=== PATIENT | male | born 1955 | race Caucasian/White ===

== ENCOUNTER 2016-06-13 15:45 | Inpatient (IN) | payer MEDICARE ==
[~2016-06-13] VITALS: Ht 170.2 cm; Wt 123.8 kg
[2016-06-13] VITALS (11 sets, daily range): BP systolic 87–121; BP diastolic 51–74; PULSE 75–85; RESP 12–38; TEMP 98.6; O2SAT 95–100
[~2016-06-13 15:45] MED LIST: ASPI81CH3 PO; ATOR20TA PO; CARV6.25 PO; CLOP75TA PO; CYCL-36 PO; FURO20TA PO; ISOS60 PO; LISI-360 PO; LOSA25 PO; NITR.3 SL; PACE200T4 PO; PARO10TA PO; PERC10TA27 PO; POTA10IN2 PO; RANO500 PO; ROPI1TAB72 PO; WARF2TAB PO; [UNRECOGNIZED DRUG - CODE] PO
[2016-06-13] MEDS ORDERED: methylPREDNISolone SOD SUCC 125 MG/2 ML VIAL IVP ONE (16:00)
[2016-06-13] MEDS ORDERED: SODIUM CHLORIDE 0.9% FLUSH 5 ML FLUSH IVF PRN (16:00)
[2016-06-13] MEDS ORDERED: SODIUM CHLORID 0.9% 500 ML INJ 500 ML IV ONE (16:00)
[2016-06-13] MEDS: RESP: ALBUTEROL 2.5 MG/IPRATROPIUM 0.5 MG NEB (SCH) INH (16:15)
[2016-06-13 16:20] LABS: BLOOD GAS BASE EXCESS 1.6 mmol/L (-2-2); BLOOD GAS CARBOXYHEMOGLOBIN 5.4 % (0-4); BLOOD GAS HCO3 27 mmol/L (22-26); BLOOD GAS METHEMOGLOBIN 1.9 % (0-2); BLOOD GAS O2 HGB SATURATION 90 % (90-100); BLOOD GAS PCO2 51 mmHg (38-42); BLOOD GAS PO2 88 mmHG (61-120); BLOOD GAS TOTAL HGB 13.4 G/DL (12.0-16.0); CRITICAL VALUE YES; DRAW SITE LT RADIAL; LITER FLOW 3 L/M; NUMBER OF ARTERIAL PUNCTURES 1; OXYGEN DEVICE NASAL CANNULA; STAT YES; TEMP CORR TO 98.6
[2016-06-13 16:22] LABS: AUTOMATED NEUTROPHIL # 6.6 TH/MM3 (1.8-7.7); BASOPHIL % 0.4 % (0.0-2.0); EOSINOPHIL # 0.1 TH/MM3 (0-0.4); EOSINOPHIL % 1.2 % (0.0-4.0); HEMATOCRIT 40.2 % (39.0-51.0); HEMO FLAGS DIFF FINAL; LYMPH % 19.2 % (9.0-44.0); LYMPHOCYTE # 1.8 TH/MM3 (1.0-4.8); MEAN CORPUSCULAR HEMOGLOBIN 29.8 PG (27.0-34.0); MEAN CORPUSCULAR HGB CONC 34.3 % (32.0-36.0); MONO % 7.3 % (0.0-8.0); NEUT % 71.9 % (16.0-70.0); PLATELET COUNT 125 TH/MM3 (150-450); RED BLOOD COUNT 4.63 MIL/MM3 (4.50-5.90); RED CELL DISTRIBUTION WIDTH 14.2 % (11.6-17.2); WHITE BLOOD COUNT 9.2 TH/MM3 (4.0-11.0)
[2016-06-13 16:40] LABS: ANION GAP 5 MEQ/L (5-15); BICARBONATE 32.1 MEQ/L (21.0-32.0); BLOOD UREA NITROGEN 15 MG/DL (7-18); CHLORIDE 98 MEQ/L (98-107); GLOMERULAR FILTRATION RATE 46 ML/MIN (>89); MAGNESIUM 1.7 MG/DL (1.5-2.5); POTASSIUM 4.3 MEQ/L (3.5-5.1); SODIUM (NA) 135 MEQ/L (136-145)
[2016-06-13 16:44] LABS: CREATINE KINASE 173 U/L (39-308)
[2016-06-13 16:46] LABS: PROTHROMBIN TIME - PATIENT 11.1 SEC (9.8-11.6)
[2016-06-13 16:56] LABS: CKMB 3.9 NG/ML (0.5-3.6)
--- NOTE | 2016-06-13 16:59 | RADRPT ---
EXAM DATE/TIME: 06/13/2016 16:02 [place] COMPARISON: CHEST SINGLE AP, June 28, 2015, 15:40. INDICATIONS : Short of breath, syncope MEDICAL HISTORY : Hypertension. Myocardial infarction. Congestive heart failure. emphysema SURGICAL HISTORY : CABG. Coronary artery stent. ENCOUNTER: Initial ACUITY: 1 day PAIN SCORE: 0/10 LOCATION: Bilateral chest FINDINGS: The cardiac silhouette is enlarged in transverse diameter. The lungs are free of acute parenchymal op acity. No effusions are identified. Median sternotomy wires are present. CONCLUSION: 1. Cardiomegaly. No acute pulmonary disease. Salvador Brower MD on June 13, 2016 at 16:54 Board Certified Radiologist. This report was verified electronically.
[2016-06-13] MEDS ORDERED: ROPI1TAB72 PO (17:03)
[2016-06-13] MEDS ORDERED: CYCL1TAB29 PO (17:03)
[2016-06-13] MEDS ORDERED: RANO500 PO (17:03)
[2016-06-13] MEDS ORDERED: ATOR20TA15 PO (17:03)
[2016-06-13] MEDS ORDERED: ASPI81CH7 CHEW (17:03)
[2016-06-13] MEDS ORDERED: WARF4TAB51 PO (17:03)
[2016-06-13] MEDS ORDERED: AMIO200T PO (17:08)
[2016-06-13] MEDS: RESP: ALBUTEROL 2.5 MG/3 ML NEB (SCH) INH (17:15)
[2016-06-13] MEDS ORDERED: DIPH1TAB36 PO (17:16)
[2016-06-13] MEDS ORDERED: LOSA25TA PO (17:16)
[2016-06-13] MEDS ORDERED: K-TA10TA PO (17:16)
[2016-06-13] MEDS ORDERED: PAXI10TA2 PO (17:16)
[2016-06-13] MEDS ORDERED: NITR1SUB2 SL (17:16)
[2016-06-13] MEDS ORDERED: CARV6.252 PO (17:16)
[2016-06-13] MEDS ORDERED: FURO20TA PO (17:16)
[2016-06-13] MEDS ORDERED: PLAV75TA29 PO (17:16)
[2016-06-13] MEDS ORDERED: LISI-515 PO (17:16)
[2016-06-13] MEDS ORDERED: ISOS60TA PO (17:16)
[2016-06-13] MEDS ORDERED: ALBUAER3 INH (17:17)
[2016-06-13] MEDS ORDERED: BISACODYL 10 MG SUPP PR PRN (17:45)
[2016-06-13] MEDS ORDERED: SENNOSIDES 8.6 MG TAB PO PRN (17:45)
[2016-06-13] MEDS ORDERED: NALOXONE HCL 0.4 MG/ML AMP IV PRN (17:45)
[2016-06-13] MEDS ORDERED: ONDANSETRON HCL 4 MG/2 ML VIAL IVP PRN (17:45)
[2016-06-13] MEDS ORDERED: SODIUM CHLORIDE 0.9% FLUSH 5 ML FLUSH FLUSH PRN (17:45)
[2016-06-13] MEDS ORDERED: ACETAMINOPHEN 325 MG TAB PO PRN (17:45)
--- NOTE | 2016-06-13 17:45 | PD ---
HPI Chief Complaint: Cardiac Complaint Time Seen by Provider: 15:57 Travel History International Travel<30 days: No Contact w/Intl Traveler<30days: No Traveled to known affect area: No History of Present Illness HPI 61-year-old male came to the emergency room brought by EMS with history of chest pain that's progressively worsening over past 2 days. Patient has history of coronary artery disease along with CABG in the past. He says for past 2 days the pain has been substernal and it was getting worse. He described the pain to be squeezing kind of chest pain. He was taking sublingual nitroglycerin at home which did not relieve the pain. Today he was short of breath as well and decided to call 911. When EMS arrived patient looked to be in distress and they gave 2 more nitroglycerin used along with bronchodilators and brought him in. From what I understand patient received a total of 5 nitroglycerin today and when he arrived his blood pressure was 82 systolic. He said his chest pain was 2 out of 10. Patient is a smoker. He is noncompliant with his other medications. [facility] Past Medical History Narrative Medical List of his past medical history as reviewed from the nursing note. Hx Anticoagulant Therapy: Yes Arthritis: Yes Atrial Fibrillation: Yes Bipolar Disorder: Yes Anxiety: Yes Depression: No Heart Rhythm Problems: Yes Cardiac Catheterization: Yes Cardiovascular Problems: Yes High Cholesterol: Yes Chest Pain: Yes Congestive Heart Failure: Yes COPD: Yes Cerebrovascular Accident: Yes ( ) Coronary Artery Disease: Yes Diabetes: No Diminished Hearing: No Endocrine: No Gastrointestinal Disorders: Yes Genitourinary: Yes Hypertension: Yes Musculoskeletal: Yes Neurologic: Yes Psychiatric: Yes Respiratory: Yes Sleep Apnea: Yes Tetanus Vaccination: < 5 Years Influenza Vaccination: Yes Past Surgical History Abdominal Surgery: Yes (gall bladder, appendix) Appendectomy: Yes Body Medical Devices: pin in right knee Cardiac Surgery: Yes (cabg ) Cholecystectomy: Yes Coronary Artery Bypass Graft: Yes Coronary Stent: Yes Other Surgery: Yes (GALBLADDER REMOVAL 1978) Social History Alcohol Use: Yes (WHISK ) Tobacco Use: Yes (05/11 PPD ) Substance Use: No Allergies-Medications (Allergen,Severity, Reaction): Coded Allergies: Codeine (Verified Allergy, Severe, 06/13/16) Rocephin (Verified Allergy, Severe, Chest Pain, 06/13/16) Pt states he had an NM when given Rocephin Comments List of his allergies reviewed from the nursing note. Reported Meds & Prescriptions Reported Meds & Active Scripts Active Reported Oxycontin (Oxycodone HCl) 20 Mg Tab 20 Mg PO Q12HR Proair Hfa 8.5 GM Inh (Albuterol Sulfate) 90 Mcg/Act Aer 2 Puff INH Q4HR PRN 108 mcg/actuation K-Tab (Potassium Chloride) 10 Meq Tab 10 Meq PO DAILY Paxil (Paroxetine HCl) 10 Mg Tab 10 Mg PO DAILY Nitroglycerin SL (Nitroglycerin) 0.3 Mg Subl 0.3 Mg SL DIRECTED PRN ONE TABLET UNDER THE TONGUE NEEDED FOR CHEST PAIN, MAY REPEAT EVERY FIVE MINUTES FOR A TOTAL OF 3 DOSES OR CALL 911 IF NO RELIEF Losartan (Losartan Potassium) 25 Mg Tab 25 Mg PO DAILY Lisinopril 20 Mg Tab 20 Mg PO DAILY Isosorbide Mononitrate ER (Isosorbide Mononitrate) 60 Mg Tab 60 Mg PO DAILY Furosemide 20 Mg Tab 20 Mg PO DAILY Tylenol Pm Extra Strength (Diphenhydramine-Acetaminophen) 25-500 Mg Tab 2 Tab PO HS Plavix (Clopidogrel Bisulfate) 75 Mg Tab 75 Mg PO DAILY Carvedilol 6.25 Mg Tab 6.25 Mg PO BID Amiodarone (Amiodarone HCl) 200 Mg Tab 200 Mg PO DAILY Ranexa ER 12 HR (Ranolazine) 500 Mg Tab 500 Mg PO HS Requip (Ropinirole) 1 Mg Tab 1 Mg PO HS Warfarin 2 Mg Tab 2 Mg PO DAILY Flexeril (Cyclobenzaprine HCl) 10 Mg Tab 10 Mg PO HS PRN Atorvastatin (Atorvastatin Calcium) 20 Mg Tab 20 Mg PO HS Aspirin Children's (Aspirin) 81 Mg Chew 81 Mg CHEW DAILY Narrative Medication List of his home medications reviewed from the nursing note. Review of Systems Except as stated in HPI: all other systems reviewed are Neg Physical Exam Narrative GENERAL: Awake, alert, morbidly obese, moderate distress, disheveled SKIN: Warm and dry. HEAD: Atraumatic. Normocephalic. EYES: Pupils equal and round. No scleral icterus. No injection or drainage. ENT: No nasal bleeding or discharge. Mucous membranes pink and moist. NECK: Trachea midline. No JVD. CARDIOVASCULAR: Regular rate and rhythm. No murmur appreciated. RESPIRATORY: Decreased air entry bilaterally, end expiratory wheeze GASTROINTESTINAL: Abdomen soft, non-tender, nondistended. Hepatic and splenic margins not palpable. MUSCULOSKELETAL: No obvious deformities. No clubbing. No cyanosis. No edema. NEUROLOGICAL: Awake and alert. No obvious cranial nerve deficits. Motor grossly within normal limits. Normal speech. PSYCHIATRIC: Appropriate mood and affect; insight and judgment normal. Data Data Last Documented VS Vital Signs Date Time Temp Pulse Resp B/P Pulse Ox O2 Delivery O2 Flow Rate FiO2 06/13/16 16:44 75 22 121/55 97 BiPAP 40 06/13/16 16:08 2 06/13/16 15:57 98.6 Orders Electrocardiogram (06/13/16 ) Complete Blood Count With Diff (06/13/16 15:57) Basic Metabolic Panel (Bmp) (06/13/16 15:57) B-Type Natriuretic Peptide (06/13/16 15:57) Prothrombin Time / Inr (Pt) (06/13/16 15:57) Magnesium (Mg) (06/13/16 15:57) Ckmb (Isoenzyme) Profile (06/13/16 15:57) Troponin I (06/13/16 15:57) Arterial Blood Gas (Abg) (06/13/16 15:57) Urinalysis - C+S If Indicated (06/13/16 15:57) Iv Access Insert/Monitor (06/13/16 15:57) Ecg Monitoring (06/13/16 15:57) Oximetry (06/13/16 15:57) Oxygen Administration (06/13/16 15:57) Chest, Single Ap (06/13/16 15:57) Sodium Chloride 0.9% Flush (Ns Flush) (06/13/16 16:00) Methylprednisolone So Succ Inj (Solumedr (06/13/16 16:00) Albuterol-Ipratropium Neb (Duoneb Neb) (06/13/16 16:00) Sodium Chlorid 0.9% 500 Ml Inj (Ns 500 M (06/13/16 16:00) CKMB (06/13/16 16:15) CKMB% (06/13/16 16:15) Albuterol Neb (Albuterol Neb) (06/13/16 17:00) Arterial Blood Gas (Abg) (06/13/16 ) Resp Bipap / Cpap Non Invas Vt (06/13/16 ) Admit Order (Ed Use Only) (06/13/16 17:45) Admit To Inpatient (06/13/16 ) Vital Signs (Adult) Q4H (06/13/16 17:40) Activity Oob With Assistance (06/13/16 17:40) Tax Auditor / Telemetry .CONTINUOUS (06/13/16 17:40) Diet Heart Healthy (06/13/16 Dinner) Sodium Chloride 0.9% Flush (Ns Flush) (06/13/16 17:45) Sodium Chloride 0.9% Flush (Ns Flush) (06/13/16 21:00) Acetaminophen (Tylenol) (06/13/16 17:45) Ondansetron Inj (Zofran Inj) (06/13/16 17:45) Bisacodyl Supp (Dulcolax Supp) (06/13/16 17:45) Sennosides (Senokot) (06/13/16 17:45) Basic Metabolic Panel (Bmp) (06/14/16 06:00) Complete Blood Count With Diff (06/14/16 06:00) Troponin I (06/13/16 17:40) Troponin I (06/13/16 23:40) Resp Oxygen Alejandro C Titrat 1-4 L (06/13/16 ) Enoxaparin Inj (Lovenox Inj) (06/13/16 20:00) Naloxone Inj (Narcan Inj) (06/13/16 17:45) Inpatient Certification (06/13/16 ) Labs Laboratory Tests Test 06/13/16 06/13/16 16:10 16:15 Blood Gas Puncture Site LT RADIAL Blood Gas Patient Temperature 98.6 Blood Gas HCO3 27 mmol/L Blood Gas Base Excess 1.6 mmol/L Blood Gas Oxygen Saturation 90 % Arterial Blood pH 7.34 Arterial Blood Partial 51 mmHg Pressure CO2 Arterial Blood Partial 88 mmHG Pressure O2 Arterial Blood Oxygen Content 17.0 Vol % Arterial Blood 5.4 % Carboxyhemoglobin Arterial Blood Methemoglobin 1.9 % Blood Gas Hemoglobin 13.4 G/DL Oxygen Delivery Device NASAL CANNULA Blood Gas Liter Flow 3 L/M White Blood Count 9.2 TH/MM3 Red Blood Count 4.63 MIL/MM3 Hemoglobin 13.8 GM/DL Hematocrit 40.2 % Mean Corpuscular Volume 87.0 FL Mean Corpuscular Hemoglobin 29.8 PG Mean Corpuscular Hemoglobin 34.3 % Concent Red Cell Distribution Width 14.2 % Platelet Count 125 TH/MM3 Mean Platelet Volume 11.3 FL Neutrophils (%) (Auto) 71.9 % Lymphocytes (%) (Auto) 19.2 % Monocytes (%) (Auto) 7.3 % Eosinophils (%) (Auto) 1.2 % Basophils (%) (Auto) 0.4 % Neutrophils # (Auto) 6.6 TH/MM3 Lymphocytes # (Auto) 1.8 TH/MM3 Monocytes # (Auto) 0.7 TH/MM3 Eosinophils # (Auto) 0.1 TH/MM3 Basophils # (Auto) 0.0 TH/MM3 CBC Comment DIFF FINAL Differential Comment Prothrombin Time 11.1 SEC Prothromb Time International 1.0 RATIO Ratio Sodium Level 135 MEQ/L Potassium Level 4.3 MEQ/L Chloride Level 98 MEQ/L Carbon Dioxide Level 32.1 MEQ/L Anion Gap 5 MEQ/L Blood Urea Nitrogen 15 MG/DL Creatinine 1.53 MG/DL Estimat Glomerular Filtration 46 ML/MIN Rate Random Glucose 100 MG/DL Calcium Level 8.3 MG/DL Magnesium Level 1.7 MG/DL Total Creatine Kinase 173 U/L Creatine Kinase MB 3.9 NG/ML Troponin I LESS THAN 0.02 NG/ML B-Type Natriuretic Peptide 36 PG/ML MDM Medical Decision Making Medical Screen Exam Complete: Yes Emergency Medical Condition: Yes Medical Record Reviewed: Yes Interpretation(s) Twelve-lead EKG was reviewed by me. Normal sinus rhythm, normal axis, nonspecific ST-T wave changes. Heart rate of 90 bpm. Differential Diagnosis ACS, non-STEMI, COPD exacerbation, congestive heart failure Narrative Course 5:39 PM patient received 3 duo nebs after which he still sounded wheezy. I decided to put him on a BiPAP and ordered 3 more albuterols. There was a blood gas done upon arrival which showed some respiratory acidosis. I've ordered a repeat blood gas after being on BiPAP for 45 minutes. Rest of the blood test results came back which are within normal limit. Patient does not appear to be in congestive heart failure. In which case this is probably a COPD exacerbation along with chest pain. Patient does have significant coronary artery disease history and hence needs to be admitted for rule out ACS. Patient will need to be admitted to medical floor given his COPD exacerbation, BiPAP and chest pain rule out ACS. Critical Care Narrative Aggregate critical care time was 45 minutes. Time to perform other separately billable procedures was not included in the critical care time. My time did not include minutes spent treating any other patients simultaneously or on activities that did not directly contribute to the patient's treatment. The services I provided to this patient were to treat and/or prevent clinically significant deterioration that could result in: Respiratory distress, COPD exacerbation, respiratory acidosis, chest pain rule out ACS I provided critical care services requiring my management, as noted below: Chart data review, documentation time, medication orders and management, vital sign assessments/reviewing monitor data, ordering and reviewing lab tests, ordering and interpreting/reviewing x-rays and diagnostic studies, care of the patient and discussion of the patient with the admitting physicians. Procedures EKG Prior to Arrival: Yes Diagnosis Primary Impression: Chest pain Qualified Code: R07.9 - Chest pain, unspecified type Additional Impressions: Acute exacerbation of chronic obstructive pulmonary disease (COPD) Respiratory distress Acute respiratory acidosis Admitting Information Admitting Physician Requests: Admit Chris Cortés MD Jun 13, 2016 17:45
[2016-06-13 18:07] LABS: BLOOD GAS BASE EXCESS 1.3 mmol/L (-2-2); BLOOD GAS CARBOXYHEMOGLOBIN 4.5 % (0-4); BLOOD GAS HCO3 26 mmol/L (22-26); BLOOD GAS METHEMOGLOBIN 1.6 % (0-2); BLOOD GAS O2 HGB SATURATION 92 % (90-100); BLOOD GAS OXYGEN CONTENT 18.6 Vol % (12.0-20.0); BLOOD GAS PCO2 49 mmHg (38-42); BLOOD GAS PO2 100 mmHG (61-120); BLOOD GAS TOTAL HGB 14.2 G/DL (12.0-16.0); CRITICAL VALUE NO; OXYGEN DEVICE VENTILATOR; TEMP CORR TO 98.6
[2016-06-13 18:08] LABS: DRAW SITE LT RADIAL; FIO2 40 %; NUMBER OF ARTERIAL PUNCTURES 1; STAT YES; VENT SETTINGS NPPVPS12/PEEP6
[2016-06-13 19:52] LABS: BACTERIA, URINE OCC /hpf; BLOOD, URINE NEG (NEG); COMMENT (UR) CULT NOT INDICATED; CULTURE IF INDICATED CULT NOT INDICATED; GLUCOSE,URINE NEG (NEG); HYALINE CAST, URINE 3 /lpf (RARE); KETONE, URINE NEG (NEG); MUCUS URINE FEW /lpf (OCC); NITRITE,URINE NEG (NEG); PH, URINE 5.5 (5.0-8.5); SQUAMOUS EPITHELIAL CELL URINE <1 /hpf (0-5); URINE COLOR YELLOW (YELLW/STRAW)
[2016-06-13] MEDS: ENOXAPARIN SODIUM 40 MG/0.4 ML SYRINGE SQ SCH (20:23)
[2016-06-13] MEDS: SODIUM CHLORIDE 0.9% FLUSH 5 ML FLUSH FLUSH SCH (20:23)
[2016-06-13] MEDS ORDERED: OXYC20TA17 PO (20:28)
[2016-06-13] MEDS: CARVEDILOL 6.25 MG TAB PO SCH (21:00)
[2016-06-13] MEDS ORDERED: RESP: ALBUTEROL 2.5 MG/IPRATROPIUM 0.5 MG NEB (PRN) NEB (21:00)
[2016-06-13] MEDS ORDERED: RANOLAZINE 500 MG EXTENDED RELEASE TAB PO SCH (21:00)
[2016-06-13] MEDS: ATORVASTATIN 20 MG TAB PO SCH (23:51)
[2016-06-13] MEDS: ACETAMINOPHEN/HYDROcodone 325 MG/5 MG TAB PO PRN (23:51)
[2016-06-14] VITALS (13 sets, daily range): BP systolic 113–146; BP diastolic 59–76; PULSE 75–98; RESP 16–20; TEMP 97.3–97.9; O2SAT 92–97
--- NOTE | 2016-06-14 00:38 | HHI.HP ---
[facility] Primary [facility]ician No Primary Care Physician Admission Diagnosis chest pain, shortness of breath, COPD exacerbation Diagnoses: (1) Unstable angina (2) Acute exacerbation of chronic obstructive pulmonary disease (COPD) (3) Acute renal insufficiency (4) Thrombocytopenia (5) Syncope and collapse Chief Complaint: chest pain and shortness of breath progressively worsening over the past several days Travel History International Travel<30 Days: No Contact w/Intl Traveler <30 Da: No Traveled to Known Affected Are: No History of Present Illness Mr. Conde is a 61 y/o male with past medical history of CVA (in the 80s), PA , coronary artery disease with coronary artery bypass graft in 2007, hyperlipidemia, atrial fibrillation, hypertension, COPD, arthritis, bipolar disorder, and tobacco abuse who presented to the emergency room on 06/13/2016 to be evaluated for chest pain unrelieved by sublingual nitroglycerin at home. He was placed on BiPAP and given nebulizers in the ER and was noted to be in respiratory acidosis on blood gas. At the time that he is seen by us, he is now on oxygen at 5 L/m via nasal cannula and is saturating around 93%. He reports that he is been having chest pain accompanied by shortness of breath for about a week or so. He states that chest pain and shortness of breath are getting progressively worse or worse with exertion. 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 He states he has not felt well since going back to work. He has been getting concerned about carbon monoxide poisoning as a possibility because of his exposure to exhaust and he wasn't quite sure if his symptoms which also included a headache or related to his heart, his lungs, or carbon monoxide poisoning. He also recently started smoking again after quitting. He states that he has reocclusion of his cardiac stents occurring yearly. He began to feel some chest pain accompanied by shortness of breath and also with some weakness in his bilateral lower extremities accompanied by pain ( which is chronic in nature due to back problems). He also felt like his left side went numb. He told his coworkers that he needed to go home and walked out of the building on his way to his car and passed out. He states he hit his head and right elbow during the fall. He complains of chronic cough at home and oxygen dependence at home. He states his sputum is a little bit thicker recently. He also feels frequently nauseated. 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 . Review of Systems Constitutional: COMPLAINS OF: Fatigue, Dizziness Respiratory: COMPLAINS OF: Cough, Shortness of breath Cardiovascular: COMPLAINS OF: Chest pain, Dyspnea on Exertion Gastrointestinal: COMPLAINS OF: Nausea, DENIES: Black stools, Bloody stools, Vomiting Genitourinary: COMPLAINS OF: Nocturia, DENIES: Dysuria Musculoskeletal: COMPLAINS OF: Muscle aches (chronic pain), Back pain (chronic pain), Neck pain (chronic pain) Neurologic: COMPLAINS OF: Headache (since returning to work), Localized weakness (bilateral lower extremities), DENIES: Seizures Other 10 point system reviewed, other than what is noted in history of present illness and above and ROS, systems are otherwise negative. 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 Past Surgical History Cholecystectomy Appendectomy Right knee repair Coronary artery bypass graft surgery in 2007 Cholecystectomy 1979 Coronary stent placement Peripheral stents/angioplasty Venous stripping Left wrist repair Carpal tunnel surgery . Reported Medications Reported Meds & Active Scripts Active Reported Oxycontin (Oxycodone HCl) 20 Mg Tab 20 Mg PO Q12HR Proair Hfa 8.5 GM Inh (Albuterol Sulfate) 90 Mcg/Act Aer 2 Puff INH Q4HR PRN 108 mcg/actuation K-Tab (Potassium Chloride) 10 Meq Tab 10 Meq PO DAILY Paxil (Paroxetine HCl) 10 Mg Tab 10 Mg PO DAILY Nitroglycerin SL (Nitroglycerin) 0.3 Mg Subl 0.3 Mg SL DIRECTED PRN ONE TABLET UNDER THE TONGUE NEEDED FOR CHEST PAIN, MAY REPEAT EVERY FIVE MINUTES FOR A TOTAL OF 3 DOSES OR CALL 911 IF NO RELIEF Losartan (Losartan Potassium) 25 Mg Tab 25 Mg PO DAILY Lisinopril 20 Mg Tab 20 Mg PO DAILY Isosorbide Mononitrate ER (Isosorbide Mononitrate) 60 Mg Tab 60 Mg PO DAILY Furosemide 20 Mg Tab 20 Mg PO DAILY Tylenol Pm Extra Strength (Diphenhydramine-Acetaminophen) 25-500 Mg Tab 2 Tab PO HS Plavix (Clopidogrel Bisulfate) 75 Mg Tab 75 Mg PO DAILY Carvedilol 6.25 Mg Tab 6.25 Mg PO BID Amiodarone (Amiodarone HCl) 200 Mg Tab 200 Mg PO DAILY Ranexa ER 12 HR (Ranolazine) 500 Mg Tab 500 Mg PO HS Requip (Ropinirole) 1 Mg Tab 1 Mg PO HS Warfarin 2 Mg Tab 2 Mg PO DAILY Flexeril (Cyclobenzaprine HCl) 10 Mg Tab 10 Mg PO HS PRN Atorvastatin (Atorvastatin Calcium) 20 Mg Tab 20 Mg PO HS Aspirin Children's (Aspirin) 81 Mg Chew 81 Mg CHEW DAILY Allergies: Coded Allergies: Codeine (Verified Allergy, Severe, 06/13/16) Rocephin (Verified Allergy, Severe, Chest Pain, 06/13/16) Pt states he had an PA when given Rocephin Active Ordered Medications Current Medications IV Flush (NS Flush) 2 ml UNSCH PRN IVF FLUSH AFTER USING IV ACCESS; Start at 16:00; Stop 06/13/16 at 18:52; Status DC Methylprednisolone Sodium Succinate (SoluMEDROL INJ) 125 mg ONCE ONCE IVP Last administered on 06/13/16 16:24; Start 06/13/16 at 16:00; Stop 06/13/16 at 16: 01; Status DC Albuterol/ Ipratropium 1 ampule 1 ampule Q15M INH Last administered on 16:15; Start 06/13/16 at 16:00; Stop 06/13/16 at 16:31; Status DC Sodium Chloride (NS 500 ml Inj) 500 ml @ 500 mls/hr BOLUS ONCE IV Last administered on 06/13/16 16:24; Start 06/13/16 at 16:00; Stop 06/13/16 at 16:59; Status DC Albuterol Sulfate (Albuterol Neb) 2.5 mg Q15M INH Last administered on 17:15; Start 06/13/16 at 17:00; Stop 06/13/16 at 17:31; Status DC IV Flush (NS Flush) 2 ml UNSCH PRN FLUSH FLUSH AFTER USING IV ACCESS; Start 06/13/16 at 17:45 IV Flush (NS Flush) 2 ml BID FLUSH Last administered on 06/13/16 20:23; Start 06/13/16 at 21:00 Acetaminophen (Tylenol) 650 mg Q4H PRN PO TEMP > 100.4; Start 06/13/16 at 17:45 Ondansetron HCl (Zofran Inj) 4 mg Q6H PRN IVP NAUSEA OR VOMITING; Start at 17:45 Bisacodyl (Dulcolax Supp) 10 mg DAILY PRN [place] CONSTIPATION; Start 06/13/16 at 17: 45 Sennosides (Senokot) 17.2 mg Q12H PRN PO CONSTIPATION; Start 06/13/16 at 17:45 Enoxaparin Sodium (Lovenox Inj) 40 mg Q24H SQ Last administered on 06/13/16 20: 23; Start 06/13/16 at 20:00 Naloxone HCl (Narcan Inj) 0.4 mg UNSCH PRN IV SEE LABEL COMMENTS; Start at 17:45 Amiodarone HCl (Cordarone) 200 mg DAILY PO ; Start 06/14/16 at 09:00 Aspirin (Aspirin Chew) 81 mg DAILY CHEW ; Start 06/14/16 at 09:00 Atorvastatin Calcium (Lipitor) 20 mg HS PO Last administered on 06/13/16 23:51 ; Start 06/13/16 at 21:00 Carvedilol (Coreg) 6.25 mg BID PO ; Start 06/13/16 at 21:00 Clopidogrel Bisulfate (Plavix) 75 mg DAILY PO ; Start 06/14/16 at 09:00 Isosorbide Mononitrate (Imdur) 60 mg DAILY PO ; Start 06/14/16 at 09:00 Lisinopril (Prinivil) 20 mg DAILY PO ; Start 06/14/16 at 09:00 Paroxetine HCl (Paxil) 10 mg DAILY PO ; Start 06/14/16 at 09:00 Ranolazine (Ranexa) 500 mg HS PO Last administered on 06/14/16 00:02; Start 06/13/16 at 21:00 Ropinirole HCl (Requip) 1 mg HS PO Last administered on 06/14/16 00:03; Start 06/13/16 at 21:00 Albuterol/ Ipratropium (Duoneb Neb) 1 ampule Q4HR NEB PRN NEB sob/wheezing; Start 06/13/16 at 21:00 Acetaminophen/ Hydrocodone Bitart ([place] 5-325 Mg) 1 tab Q6H PRN PO pain >5 Last administered on 06/13/16 23:51; Start 06/13/16 at 23:15 Family History Father: of PA before the age of 39; CVA Mother with lung CA Social History Tobacco: Smokes 1/4 pack per day x 40+ years - quit but recently restarted Alcohol: Drinks whiskey on weekends Illicit Drugs: History of IVDU - meth and cocaine - no use in many years . Physical Exam Vital Signs Vital Signs Date Time Temp Pulse Resp B/P Pulse Ox O2 Delivery O2 Flow Rate FiO2 06/13/16 23:10 82 20 119/74 95 06/13/16 22:54 98 40 06/13/16 21:50 80 15 112/58 100 BiPAP 06/13/16 20:10 83 12 115/58 97 BiPAP 06/13/16 19:15 98 40 06/13/16 18:19 80 20 97/71 99 BiPAP 40 06/13/16 16:44 75 22 121/55 97 BiPAP 40 06/13/16 16:43 99 40 06/13/16 16:08 85 32 98/55 97 Nasal Cannula 2 06/13/16 16:01 97 Nasal Cannula 2 06/13/16 16:01 97 Nasal Cannula 2 06/13/16 15:57 98.6 82 38 87/51 97 Physical Exam GENERAL: This is a chronically ill-appearing male patient who appears older than stated age, in no apparent distress. SKIN: No rashes, ecchymoses or lesions. Cool and dry. HEAD: Atraumatic. Normocephalic. EYES: No scleral icterus. No injection or drainage. ENT: Nose without bleeding, purulent drainage. NECK: Trachea midline. No JVD or lymphadenopathy. CARDIOVASCULAR: Regular rate and rhythm without murmurs, gallops, or rubs. RESPIRATORY: Breath sounds equal bilaterally. No rales. Wheezing was auscultated throughout lung casas GASTROINTESTINAL: Abdomen soft, non-tender, nondistended. No guarding. MUSCULOSKELETAL: Extremities without clubbing, cyanosis, or edema. No calf tenderness. NEUROLOGICAL: Awake and alert. Motor and sensory grossly within normal limits. Normal speech. . Laboratory Laboratory Tests Test 06/13/16 06/13/16 06/13/16 06/13/16 16:10 16:15 17:57 19:10 Blood Gas Puncture Site LT RADIAL LT RADIAL Blood Gas Patient Temperature 98.6 98.6 Blood Gas HCO3 27 26 Blood Gas Base Excess 1.6 1.3 Blood Gas Oxygen Saturation 90 92 Arterial Blood pH 7.34 7.35 Arterial Blood Partial 51 49 Pressure CO2 Arterial Blood Partial 88 100 Pressure O2 Arterial Blood Oxygen Content 17.0 18.6 Arterial Blood 5.4 4.5 Carboxyhemoglobin Arterial Blood Methemoglobin 1.9 1.6 Blood Gas Hemoglobin 13.4 14.2 Oxygen Delivery Device NASAL CANNULA VENTILATOR Blood Gas Liter Flow 3 White Blood Count 9.2 Red Blood Count 4.63 Hemoglobin 13.8 Hematocrit 40.2 Mean Corpuscular Volume 87.0 Mean Corpuscular Hemoglobin 29.8 Mean Corpuscular Hemoglobin 34.3 Concent Red Cell Distribution Width 14.2 Platelet Count 125 Mean Platelet Volume 11.3 Neutrophils (%) (Auto) 71.9 Lymphocytes (%) (Auto) 19.2 Monocytes (%) (Auto) 7.3 Eosinophils (%) (Auto) 1.2 Basophils (%) (Auto) 0.4 Neutrophils # (Auto) 6.6 Lymphocytes # (Auto) 1.8 Monocytes # (Auto) 0.7 Eosinophils # (Auto) 0.1 Basophils # (Auto) 0.0 CBC Comment DIFF FINAL Differential Comment Prothrombin Time 11.1 Prothromb Time International 1.0 Ratio Sodium Level 135 Potassium Level 4.3 Chloride Level 98 Carbon Dioxide Level 32.1 Anion Gap 5 Blood Urea Nitrogen 15 Creatinine 1.53 Estimat Glomerular Filtration 46 Rate Random Glucose 100 Calcium Level 8.3 Magnesium Level 1.7 Total Creatine Kinase 173 Creatine Kinase MB 3.9 Troponin I LESS THAN 0.02 B-Type Natriuretic Peptide 36 Blood Gas Ventilator Setting [id number] Blood Gas Inspired Oxygen 40 Urine Color YELLOW Urine Turbidity CLEAR Urine pH 5.5 Urine Specific [place] 1.007 Urine Protein NEG Urine Glucose (UA) NEG Urine Ketones NEG Urine Occult Blood NEG Urine Nitrite NEG Urine Bilirubin NEG Urine Urobilinogen LESS THAN 2.0 Urine Leukocyte Esterase NEG Urine RBC LESS THAN 1 Urine WBC LESS THAN 1 Urine Squamous Epithelial <1 Cells Urine Bacteria OCC Urine Hyaline Casts 3 Urine Mucus FEW Microscopic Urinalysis Comment CULT NOT INDICATED Test 06/13/16 20:20 Troponin I LESS THAN 0.02 Result Diagram: 06/13/16 1615 06/13/16 1615 Imaging Last Impressions Head CT 06/14/16 0000 Signed Impressions: Service Date/Time: Tuesday, June 14, 2016 00:58 - CONCLUSION: No acute disease. Patel Vázquez MD Chest X-Ray 06/13/16 1557 Signed Impressions: Service Date/Time: Monday, June 13, 2016 16:02 - CONCLUSION: 1. Cardiomegaly. No acute pulmonary disease. Salvador Brower MD . Assessment and Plan Problem List: (1) Unstable angina ICD Code: I20.0 Status: Acute (2) Acute exacerbation of chronic obstructive pulmonary disease (COPD) ICD Code: J44.1 Status: Acute (3) Acute renal insufficiency ICD Code: N28.9 Status: Acute (4) Thrombocytopenia ICD Code: D69.6 Status: Chronic (5) Syncope and collapse ICD Code: R55 Status: Acute Assessment and Plan Unstable Angina - Serial troponin I to rule out ACS - Continuous cardiac telemetry to monitor for arrhythmia - Heart healthy diet - Vital signs every 4 hours - consult cardiology COPD exacerbation vs carbon monoxide poisoning vs combination or both - elevated carboxyhemoglobin on admission - 5.4 - Continue BiPAP to maintain oxygen saturations greater than 92% - To the nebulizers every 4 hours when necessary shortness of breath wheezing - Solumedrol 40 mg IV q6h to reduce inflammation (received @ 1624 in er solumedrol 125mg IV) Syncope - CT head to r/o intracranial abnormality - Neuro checks q4h - 2D echocardiogram to assess cardiac structure and function - cardiology consult as above Acute Renal Insufficiency - BUN normal at 15, creatinine elevated at 1.53, estimated GFR decreased at 46 when compared to prior labs - Normal saline bolus 500 cc given in ER - Recheck BMP in a.m. and follow trends in renal indices Chronic thrombocytopenia - Platelets 125,000 stable compared to prior labs - Recheck CBC in a.m. and follow trends Tobacco Abuse - counselled tobacco cessation DVT prophylaxis - Lovenox 40 mg sq q24h Written by Tiff Astudillo, acting as scribe for Dr. Mathur on 06/14/16 at 00:10. The documentation accurately reflects the work performed [id number] by me on at 0010 Discussed Condition With patient and RN . Physician Certification 2 Midnight Certification Type: Admission for Inpatient Services Order for Inpatient Services The services are ordered in accordance with Medicare regulations or non- Medicare payer requirements, as applicable. In the case of services not specified as inpatient-only, they are appropriately provided as inpatient services in accordance with the 2-midnight benchmark. Estimated LOS (days): 3 days is the estimated time the patient will need to remain in the hospital, assuming treatment plan goals are met and no additional complications. Post-Hospital Plan: Not yet determined Tiff Astudillo Jun 14, 2016 00:37 Goldie Mathur MD Jun 14, 2016 08:50
--- NOTE | 2016-06-14 01:06 | RADRPT ---
EXAM DATE/TIME: 06/14/2016 00:58 [facility] COMPARISON: CT BRAIN W/O CONTRAST, August 22, 2012, 20:51. INDICATIONS : Dizziness past 3 days. RADIATION DOSE: 49.16 CTDIvol (mGy) MEDICAL HISTORY : Cardiovascular disease. Hypertension. Emphysema.COPD SURGICAL HISTORY : CABG Appendectomy.Cholecystectomy. ENCOUNTER: Initial ACUITY: 3 days PAIN SCALE: 0/10 LOCATION: cranial TECHNIQUE: Multiple contiguous axial images were obtained of the head. Using automated exposure control and adj ustment of the mA and/or kV according to patient size, radiation dose was kept as low as reasonably a chievable to obtain optimal diagnostic quality images. FINDINGS: CEREBRUM: The ventricles are normal for age. No evidence of midline shift, mass lesion, hemorrhage or acute in farction. No extra-axial fluid collections are seen. POSTERIOR FOSSA: The cerebellum and brainstem are intact. The 4th ventricle is midline. The cerebellopontine angle i s unremarkable. EXTRACRANIAL: The visualized portion of the orbits is intact. SKULL: The calvaria is intact. No evidence of skull fracture. CONCLUSION: No acute disease. Patel Vázquez MD on June 14, 2016 at 1:04 Board Certified Radiologist. This report was verified electronically.
[2016-06-14] MEDS: methylPREDNISolone SOD SUCC 40 MG/1 ML VIAL IV PUSH SCH ×4 (01:42→17:33)
[2016-06-14 08:29] LABS: AUTOMATED NEUTROPHIL # 8.3 TH/MM3 (1.8-7.7); HEMATOCRIT 42.1 % (39.0-51.0); HEMO FLAGS DIFF FINAL; LYMPH % 5.3 % (9.0-44.0); LYMPHOCYTE # 0.5 TH/MM3 (1.0-4.8); MEAN CELL VOLUME 88.1 FL (80.0-100.0); MEAN CORPUSCULAR HEMOGLOBIN 29.3 PG (27.0-34.0); MEAN CORPUSCULAR HGB CONC 33.3 % (32.0-36.0); MONO % 1.1 % (0.0-8.0); NEUT % 93.6 % (16.0-70.0); PLATELET COUNT 109 TH/MM3 (150-450); RED BLOOD COUNT 4.78 MIL/MM3 (4.50-5.90); WHITE BLOOD COUNT 8.8 TH/MM3 (4.0-11.0)
[2016-06-14 08:51] LABS: BICARBONATE 31.7 MEQ/L (21.0-32.0); POTASSIUM 5.1 MEQ/L (3.5-5.1)
[2016-06-14] MEDS: ASPIRIN 81 MG CHEW TAB CHEW SCH (09:00)
[2016-06-14] MEDS: CLOPIDOGREL 75 MG TAB PO SCH (09:00)
[2016-06-14] MEDS: SODIUM CHLORIDE 0.9% FLUSH 5 ML FLUSH FLUSH SCH ×2 (09:00→20:07)
[2016-06-14] MEDS: CARVEDILOL 6.25 MG TAB PO SCH ×2 (09:00→20:04)
[2016-06-14] MEDS: ISOSORBIDE MONONITRATE 60 MG TAB PO SCH (09:00)
[2016-06-14] MEDS: LISINOPRIL 20 MG TAB PO SCH (09:00)
[2016-06-14] MEDS: PARoxetine HCL 20 MG TAB PO SCH (09:00)
[2016-06-14] MEDS: AMIODARONE 200 MG TAB PO SCH (09:00)
[2016-06-14] MEDS: ACETAMINOPHEN/HYDROcodone 325 MG/5 MG TAB PO PRN ×2 (13:21→22:23)
--- NOTE | 2016-06-14 14:38 | HHI.PR ---
Addendum to Inpatient Note Addendum Reason: Additional Documentation Additional Information Patient seen and examined. I discussed the case with the concrete puddler, Dr. Lane. The records from his previous concrete puddler will be requested and the plan will be formulated based on the records and findings of ongoing workup here to include an echocardiogram. The patient continue to have wheezing related to his COPD on exam. Will continue with IV Solu-Medrol and schedule the breathing treatments. Maite Neff MD Jun 14, 2016 14:38
--- NOTE | 2016-06-14 14:42 | MB ---
cc: ADDY TRUJILLO MD, VINCENT G. DO DATE OF CONSULTATION: 06/14/2016 REASON FOR CONSULTATION Chest pain. HISTORY OF PRESENT ILLNESS Mr. Conde is a 61-year-old male who presents to [facility] Emergency Room on June 13, 2016 due to chest pain and shortness of breath. He states that the chest pain was unrelieved by sublingual nitroglycerin at home. Per the patient he has had chest pain off and on for the past year. Shortness of breath has been a little worse lately, specifically over the past week. He has noticed that the chest pain has been getting somewhat progressively worse with exertion. 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 He states he has not felt well since going back to work. He said along with these symptoms he has also had a headache which he is concerned about carbon monoxide poisoning. He previously quit smoking but once again has started. He also has felt somewhat weak in his lower extremities. Apparently he felt this way the other day and he felt like his left side went numb and he told his co-workers that he needed to go home and walked out of the building and on the way to his car passed out. PAST MEDICAL HISTORY 1. Coronary artery disease. 2. CVA (1980) with no residual weakness thought to be due to meth and cocaine use. 3. Hyperlipidemia. 4. Paroxysmal atrial fibrillation. 5. Hypertension. 6. COPD. 7. Arthritis. 8. Bipolar disorder 9. Tobacco abuse. 10.Peripheral artery disease. 11.Kidney stones. 12.Obstructive sleep apnea. 13.Ischemic cardiomyopathy. PAST SURGICAL HISTORY 1. Coronary artery bypass grafting (2007). 2. Cardiac catheterization (July 04, 2014): Left main 25% distal, LAD 90% proximally, diagonal 25%. Left circumflex is a large dominant vessel which is diffusely diseased. The proximal left circumflex has a 40% lesion, mid 50%. Distal obtuse marginal was totally occluded. Unsure if there is a totally occluded obtuse marginal arising from the proximal section. RCA is totally occluded near the origin. COOK to LAD is widely patent. A stump is noted possibly to the right coronary artery or PDA which is totally occluded. The vein graft to the distal obtuse marginal is diffusely diseased with a 99% stenosis in the distal portion. PCI of this vein graft to distal obtuse marginal with placement of a Promus Premier stent (3 x 16). 3. Cholecystectomy (1978). 4. Appendectomy. 5. Right knee repair. 6. Peripheral stent and angioplasty. 7. Previous venous stripping. 8. Left wrist repair. 9. Carpal tunnel surgery. ALLERGIES 1. CODEINE. 2. ROCEPHIN. MEDICATIONS 1. Losartan 25 mg daily. 2. Lisinopril 20 mg daily. 3. Amiodarone 200 mg daily. 4. Coumadin 2.5 mg daily 5. Paxil 10 mg daily. 6. Albuterol, two puffs every 4 hours as needed. 7. Coreg 6.25 mg b.i.d. 8. Ranexa 500 mg every night. 9. Flexeril 10 mg every night as needed. 10.Requip 1 mg every night. 11.Lipitor 20 mg every night. 12.Lasix 20 mg daily. 13.Imdur 60 mg daily. 14.Nitro sublingual as needed. 15.Aspirin 81 mg daily. 16.OxyContin 20 mg every 12 hours. 17.Plavix 75 mg daily. 18.Potassium 10 mEq daily. FAMILY HISTORY Father of an MD before the age of 39. He also had a history of CVA. Mother had lung cancer. SOCIAL HISTORY The patient smokes a 1/4 pack of cigarettes a day for greater than 40 years. Recently quit but has since restarted. He drinks whiskey on the weekends. He has a history of IV drug abuse with meth and cocaine but this is from many years ago. REVIEW OF SYSTEMS 14-systems were reviewed including osteopathic. Pertinent positives and negatives as above, otherwise negative. PHYSICAL EXAMINATION VITAL SIGNS: Temperature 98.6, heart rate 91, blood pressure 132/66, respirations 20, pulse ox 95% on 3 liters. GENERAL: The patient appears well in no acute distress, alert, awake and oriented x3. Extraocular muscles intact. Mucous membranes moist. NECK: Supple. No JVD at 45 degrees. No carotid bruits heard bilaterally. Carotid upstroke is brisk in nature. HEART: Regular rate and rhythm. Positive first and second heart sounds with a 1/6 holosystolic murmur noted at the apex. LUNGS: Decreased breath sounds throughout with minimal wheezing. ABDOMEN: Soft, nontender, nondistended. No organomegaly noted. EXTREMITIES: No clubbing, cyanosis or edema. Femoral pulses are intact bilaterally. NEUROLOGIC: No focal deficits. SKIN: Warm, dry and intact. MUSCULOSKELETAL: Osteopathically no kyphoscoliosis, mild lordosis, no paraspinal tender points. LABORATORY Hemoglobin 14.0, hematocrit 42.1, platelets 109. INR 1.0. Potassium 5.1, BUN 17, creatinine 1.3. Troponins negative x3. BNP 36. EKG Electrocardiogram (June 13, 2016 at 1554): Sinus rhythm, occasional PAC, old inferior infarct. IMPRESSIONS 1. Chest pain concerning for chronic angina. 2. Shortness of breath, most likely some combination of COPD exacerbation with carbon monoxide exposure. 3. Questionable syncope from unknown cause. 4. Acute renal insufficiency. 5. Chronic thrombocytopenia. 6. Tobacco abuse. 7. History of drug abuse including meth and Dilaudid. 8. Hyperlipidemia. 9. History of atrial fibrillation. 10.History of hypertension. RECOMMENDATIONS 1. 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 Addy Trujillo, who states that Mr. Conde was placed on Brilinta and then could not afford it, so he was only taking it every other day and stopped it without calling his retail merchandising coordinator. He was then placed back on Plavix at that time. He underwent cardiac catheterization and was found to have occlusion of his graft that was recently intervened upon. At that time he underwent a stress test which showed scar inferolaterally. He underwent a PET scan in June 2015 which showed lateral scar as well as inferior scar and an ejection fraction of 45%. He has been treating him for chronic angina since that time. He did recommend to him possible EECP as he appears to have chronic angina and is not a bypass or intervention candidate. 2. At this time we will attempt to try to increase his anti-anginal medication. 3. I believe his shortness of breath is most likely multifactorial which might be partially coronary insufficiency due to angina versus COPD exacerbation versus carbon monoxide poisoning. 4. Will check a 2-D echo to look at his overall function as well as possible causes of syncope. 5. He will be started back on his previous medication including amiodarone for his atrial fibrillation. 6. He did have a subtherapeutic INR of 1.0 and per the patient his primary left the area, and no one was following his INR, and couldn't get his medications 7. After the echo we will consider possible stress testing, although last stress test and PET scan showed scar throughout the inferolateral areas. Thank you for allowing me to see Popeye Conde. If there are any questions, please do not hesitate to call. Les Lane DO VGP/BT /1:21 PM /2:17 PM [email or web address]
[2016-06-14] MEDS ORDERED: TEMAZEPAM 15 MG CAP PO PRN (14:45)
[2016-06-14] MEDS ORDERED: LORazepam 0.5 MG TAB PO PRN (14:45)
[2016-06-14] MEDS: RESP: ALBUTEROL 2.5 MG/IPRATROPIUM 0.5 MG NEB (SCH) NEB ×2 (15:22→21:23)
--- NOTE | 2016-06-14 17:52 | EKG ---
Date Performed: 06/13/2016 Time Performed: 15:54:32 PTAGE: 61 years EKG: Sinus rhythm WITH OCCASIONAL SUPRAVENTRICULAR PREMATURE COMPLEXES INFERIOR MYOCARDIAL INFARCTION Since previous t racing, no significant change noted ABNORMAL ECG PREVIOUS TRACING : 06/28/2015 16.50 DOCTOR: Antonio Patterson Interpretating Date/Time 06/14/2016 17:50:29
--- NOTE | 2016-06-14 17:57 | EC ---
Study Study Date:06/14/2016 STUDY CONCLUSIONS SUMMARY - Procedure narrative: Image quality was fair. The study was technically limited due to body habitus. - Left ventricle: The cavity size was mildly dilated. Wall thickness was increased in a pattern of mild LVH. Systolic function was moderately reduced. The estimated ejection fraction was in the range of 35% to 40%. Hypokinesis of the lateral myocardium. Hypokinesis of the inferior myocardium. - Mitral valve: Mildly calcified annulus. - Pericardium, extracardiac: A trivial pericardial effusion was identified. If LV function is below 40, please consider prescribing an ACEI or ARB or document rationale for non-use. PROCEDURE DATA STUDY STATUS: Elective. Procedure: Transthoracic echocardiography. Image quality was fair. The study was technically limited due to body habitus. Scanning was performed from the parasternal, apical, and subcostal acoustic windows. Study completion: The patient tolerated the procedure well. Transthoracic echocardiography. M-mode, complete 2D, complete spectral Doppler, and color Doppler. Patient status: Inpatient. CARDIAC ANATOMY LEFT VENTRICLE: The cavity size was mildly dilated. Wall thickness was increased in a pattern of mild LVH. Systolic function was moderately reduced. The estimated ejection fraction was in the range of 35% to 40%. Regional wall motion abnormalities: Hypokinesis of the lateral myocardium. Hypokinesis of the inferior myocardium. AORTIC VALVE: The valve appears to be grossly normal. Doppler: There was no stenosis. No significant regurgitation. MITRAL VALVE: Mildly calcified annulus. Doppler: There was no evidence for stenosis. Trace to mild regurgitation. Peak gradient: 4mm Hg (D). RIGHT VENTRICLE: The cavity size was normal. PULMONIC VALVE: Not well visualized. Doppler: There was no evidence for stenosis. No significant regurgitation. TRICUSPID VALVE: The valve appears to be grossly normal. Doppler: There was no evidence for stenosis. Trace regurgitation. PERICARDIUM: A trivial pericardial effusion was identified. BASIC MEASUREMENTS ADULT Normal Left ventricle LV internal dimension, ED, chordal level, 48.9 mm 43-52 PLAX LV internal dimension, ES, chordal level, *42.8 mm 23-38 PLAX Fractional shortening, chordal level, PLAX *12 % >29 LV posterior wall thickness, ED 8.3 mm IVS/LVPW ratio, ED *1.4 <1.3 Ventricular septum Septal thickness, ED 11.6 mm Left atrium Anterior-posterior dimension 33 mm Right ventricle RV internal dimension, ED, PLAX 19.4 mm 19-38 DOPPLER MEASUREMENTS ADULT Normal Mitral valve Peak E-wave velocity 100 cm/s Peak A-wave velocity 136 cm/s Peak gradient, D 4 mm Hg Peak E/A ratio 0.7 Tricuspid valve Regurgitant peak velocity 153 cm/s Peak RV-RA gradient, S 9 mm Hg Maximal regurgitant velocity 153 cm/s LEGEND: Mean values are shown as u=mean value. Asterisk (*) flowers values outside specified normal range. Prepared and signed by Les Lane [id number]
[2016-06-14] MEDS: NICOTINE 14 MG/24 HR PATCH TD SCH (18:15)
[2016-06-14] MEDS: ATORVASTATIN 20 MG TAB PO SCH (20:04)
[2016-06-14] MEDS: RANOLAZINE 500 MG EXTENDED RELEASE TAB PO SCH (20:04)
[2016-06-14] MEDS: ENOXAPARIN SODIUM 40 MG/0.4 ML SYRINGE SQ SCH (20:04)
[2016-06-15] VITALS (35 sets, daily range): BP systolic 102–134; BP diastolic 55–77; PULSE 67–92; RESP 18–22; TEMP 97.4–98.7; O2SAT 90–97
[2016-06-15] MEDS: methylPREDNISolone SOD SUCC 40 MG/1 ML VIAL IV PUSH SCH ×2 (00:07→05:29)
[2016-06-15] MEDS: RESP: ALBUTEROL 2.5 MG/IPRATROPIUM 0.5 MG NEB (SCH) NEB ×6 (03:24→19:14)
[2016-06-15 07:46] LABS: BICARBONATE 31.5 MEQ/L (21.0-32.0); POTASSIUM 3.7 MEQ/L (3.5-5.1)
[2016-06-15] MEDS: ISOSORBIDE MONONITRATE 60 MG TAB PO SCH (07:58)
[2016-06-15] MEDS: PARoxetine HCL 20 MG TAB PO SCH (07:58)
[2016-06-15] MEDS: ACETAMINOPHEN/HYDROcodone 325 MG/5 MG TAB PO PRN ×3 (07:58→23:32)
[2016-06-15] MEDS: CARVEDILOL 6.25 MG TAB PO SCH ×2 (07:58→20:14)
[2016-06-15] MEDS: AMIODARONE 200 MG TAB PO SCH (07:58)
[2016-06-15] MEDS: RANOLAZINE 500 MG EXTENDED RELEASE TAB PO SCH ×2 (07:58→20:13)
[2016-06-15] MEDS: LISINOPRIL 20 MG TAB PO SCH (07:59)
[2016-06-15] MEDS: ASPIRIN 81 MG CHEW TAB CHEW SCH (07:59)
[2016-06-15] MEDS: CLOPIDOGREL 75 MG TAB PO SCH (07:59)
[2016-06-15] MEDS: NICOTINE 14 MG/24 HR PATCH TD SCH (08:00)
[2016-06-15] MEDS: SODIUM CHLORIDE 0.9% FLUSH 5 ML FLUSH FLUSH SCH ×2 (08:00→20:16)
[2016-06-15] MEDS ORDERED: HYDR-3516 PO (10:23)
--- NOTE | 2016-06-15 14:08 | PD.CARD.PN ---
Subjective Subjective Remarks No chest pain today, decreased shortness of breath Objective Medications Current Medications Medications (Trade) Dose Ordered Sig/Tremaine Route Start Time Stop Time Status Last Admin (Tylenol) 650 mg Q4H PRN PO 06/13/16 17:45 (Zofran Inj) 4 mg Q6H PRN IVP 06/13/16 17:45 (Dulcolax Supp) 10 mg DAILY PRN VA 06/13/16 17:45 (Senokot) 17.2 mg Q12H PRN PO 06/13/16 17:45 (Lovenox Inj) 40 mg Q24H SQ 06/13/16 20:00 06/14/16 20:04 (Narcan Inj) 0.4 mg UNSCH PRN IV 06/13/16 17:45 (Cordarone) 200 mg DAILY PO 06/14/16 09:00 06/15/16 07:58 (Aspirin Chew) 81 mg DAILY CHEW 06/14/16 09:00 06/15/16 07:59 (Lipitor) 20 mg HS PO 06/13/16 21:00 06/14/16 20:04 (Coreg) 6.25 mg BID PO 06/13/16 21:00 06/15/16 07:58 (Plavix) 75 mg DAILY PO 06/14/16 09:00 06/15/16 07:59 (Imdur) 60 mg DAILY PO 06/14/16 09:00 06/15/16 07:58 (Prinivil) 20 mg DAILY PO 06/14/16 09:00 06/15/16 07:59 (Paxil) 10 mg DAILY PO 06/14/16 09:00 06/15/16 07:58 (Requip) 1 mg HS PO 06/13/16 21:00 06/14/16 20:04 ([place] 5-325 Mg) 1 tab Q6H PRN PO 06/13/16 23:15 06/15/16 07:58 (Ranexa) 500 mg BID PO 06/14/16 21:00 06/15/16 07:58 (Restoril) 15 mg HS PRN PO 06/14/16 14:45 (Ativan) 0.5 mg Q8H PRN PO 06/14/16 14:45 (Habitrol 14 Mg Patch.24 Hr) 1 patch DAILY TD 06/14/16 18:15 06/15/16 08:00 (Symbicort 160-4.5 Inh) 1 puff Q12HR INH 06/15/16 21:00 (Deltasone) 20 mg BID PO 06/15/16 21:00 Vital Signs / I&O Vital Signs Date Time Temp Pulse Resp B/P Pulse Ox O2 Delivery O2 Flow Rate FiO2 06/15/16 13:34 86 06/15/16 12:07 86 06/15/16 12:01 81 06/15/16 11:45 81 06/15/16 11:45 97.4 82 18 102/58 95 06/15/16 11:00 81 06/15/16 10:01 83 06/15/16 09:56 72 06/15/16 09:33 18 06/15/16 09:29 94 Nasal Cannula 3.00 06/15/16 08:45 97.4 92 18 134/75 92 06/15/16 08:45 87 06/15/16 08:02 88 06/15/16 07:02 92 06/15/16 07:01 97.4 92 18 134/75 92 06/15/16 06:00 86 06/15/16 05:00 86 06/15/16 04:14 89 127/77 94 06/15/16 04:00 88 06/15/16 03:26 91 Nasal Cannula 2.00 06/15/16 03:00 87 06/15/16 02:00 90 06/15/16 01:00 86 06/15/16 00:02 90 Nasal Cannula 2.00 06/15/16 00:00 84 06/14/16 23:00 85 06/14/16 23:00 97.3 87 119/70 94 06/14/16 22:00 90 06/14/16 21:00 98 06/14/16 20:00 92 06/14/16 19:00 97.9 92 145/63 94 06/14/16 19:00 87 06/14/16 15:34 97.6 75 18 125/62 97 06/14/16 15:24 92 21 I/O 06/14/16 06/14/16 06/14/16 06/15/16 06/15/16 06/15/16 07:00 15:00 23:00 07:00 15:00 23:00 Intake Total 670 ml 240 ml Balance 670 ml 240 ml Intake Oral 670 ml 240 ml # Voids 4 2 # Bowel Movements 1 1 Physical Exam GENERAL: NAD, AAOx3 SKIN: Warm and dry. HEAD: Atraumatic. Normocephalic. EYES: Pupils equal and round. No scleral icterus. No injection or drainage. ENT: No nasal bleeding or discharge. Mucous membranes pink and moist. NECK: Trachea midline. No JVD. CARDIOVASCULAR: Regular rate and rhythm. RESPIRATORY: No accessory muscle use. Decreased breath sounds bilaterally, with expiration wheezes GASTROINTESTINAL: Abdomen soft, non-tender, nondistended. Hepatic and splenic margins not palpable. MUSCULOSKELETAL: Extremities without clubbing, cyanosis, or edema. No obvious deformities. NEUROLOGICAL: Awake and alert. No obvious cranial nerve deficits. Motor grossly within normal limits. Five out of 5 muscle strength in the arms and legs. Normal speech. PSYCHIATRIC: Appropriate mood and affect; insight and judgment normal. Laboratory Laboratory Tests Test 06/15/16 05:10 Sodium Level 139 MEQ/L Potassium Level 3.7 MEQ/L Chloride Level 101 MEQ/L Carbon Dioxide Level 31.5 MEQ/L Anion Gap 7 MEQ/L Blood Urea Nitrogen 39 MG/DL Creatinine 1.72 MG/DL Estimat Glomerular Filtration 40 ML/MIN Rate Random Glucose 125 MG/DL Calcium Level 8.5 MG/DL Assessment and Plan Problem List: (1) Acute exacerbation of chronic obstructive pulmonary disease (COPD) (2) Syncope and collapse (3) Chronic stable angina (4) Acute respiratory acidosis (5) Obesity (6) Diabetes (7) COPD (chronic obstructive pulmonary disease) Assessment and Plan 1) Chest pain appears to be chronic angina in nature. Has been going on for the past year, since his last NSTEMI and cardiac catheterization, with no real change 2) Had a stress test and PET scan by his wooden shade hardware installer, who felt he was not a candidate for intervention or repeat bypass 3) Offered Enhanced External Counter Pulsation therapy, which I think would be a great option for him, although he is worried about his chronic back pain so has not pursued it. 4) Attempt to increase anginal medications to help with chronic angina 5) Needs to quit smoking, as his difficulty breathing puts further stress on the heart 6) Spoke to patient who understands the plan, also spoke to Roverto, the patient's son about my concerns and the plan 7) Roverto also mentioned that his father gets short of breath, starts popping multiple nitros, has done this in the past and passed out just like his episode before presentation 8) Previously on Coumadin, but ran out... INR 1.0 on arrival, just got Coumadin script the day before coming back in, will start back on Coumadin for AfLes Haile DO Jun 15, 2016 14:08
--- NOTE | 2016-06-15 14:14 | HHI.PR ---
Subjective Remarks Patine still requiring 3 L of oxygen. He states that he often use his oxygen at home. No chest pain. Still gets short of breath with minimal activities but is improving. Objective Vitals Vital Signs Date Time Temp Pulse Resp B/P Pulse Ox O2 Delivery O2 Flow Rate FiO2 06/15/16 13:34 86 06/15/16 12:07 86 06/15/16 12:01 81 06/15/16 11:45 81 06/15/16 11:45 97.4 82 18 102/58 95 06/15/16 11:00 81 06/15/16 10:01 83 06/15/16 09:56 72 06/15/16 09:33 18 06/15/16 09:29 94 Nasal Cannula 3.00 06/15/16 08:45 97.4 92 18 134/75 92 06/15/16 08:45 87 06/15/16 08:02 88 06/15/16 07:02 92 06/15/16 07:01 97.4 92 18 134/75 92 06/15/16 06:00 86 06/15/16 05:00 86 06/15/16 04:14 89 127/77 94 06/15/16 04:00 88 06/15/16 03:26 91 Nasal Cannula 2.00 06/15/16 03:00 87 06/15/16 02:00 90 06/15/16 01:00 86 06/15/16 00:02 90 Nasal Cannula 2.00 06/15/16 00:00 84 06/14/16 23:00 85 06/14/16 23:00 97.3 87 119/70 94 06/14/16 22:00 90 06/14/16 21:00 98 06/14/16 20:00 92 06/14/16 19:00 97.9 92 145/63 94 06/14/16 19:00 87 06/14/16 15:34 97.6 75 18 125/62 97 06/14/16 15:24 92 21 I/O 06/14/16 06/14/16 06/14/16 06/15/16 06/15/16 06/15/16 07:00 15:00 23:00 07:00 15:00 23:00 Intake Total 670 ml 240 ml Balance 670 ml 240 ml Intake Oral 670 ml 240 ml # Voids 4 2 # Bowel Movements 1 1 Result Diagram: 06/14/16 0551 06/15/16 0510 Imaging Last Impressions Head CT 06/14/16 0000 Signed Impressions: Service Date/Time: Tuesday, June 14, 2016 00:58 - CONCLUSION: No acute disease. Patel Vázquez MD Chest X-Ray 06/13/16 1557 Signed Impressions: Service Date/Time: Monday, June 13, 2016 16:02 - CONCLUSION: 1. Cardiomegaly. No acute pulmonary disease. Salvador Brower MD Objective Remarks GENERAL: Elderly male in no acute distress. CARDIOVASCULAR: Normal rate and regular rhythm without murmurs, gallops, or rubs. RESPIRATORY: Diminished breath sounds at the bases. There are faint expiratory wheezing. Otherwise clear to auscultation bilaterally. GASTROINTESTINAL: Abdomen soft, non-tender, non-distended. Normal active bowel sounds MUSCULOSKELETAL: Extremities without cyanosis, or edema. NEURO: Alert & Oriented x4 to person, place, time, situation. Moves all ext x4 PSYCH: Appropriate mood and affect. A/P Problem List: (1) Unstable angina ICD Code: I20.0 Status: Acute (2) Acute exacerbation of chronic obstructive pulmonary disease (COPD) ICD Code: J44.1 Status: Acute (3) Acute renal insufficiency ICD Code: N28.9 Status: Acute (4) Thrombocytopenia ICD Code: D69.6 Status: Chronic (5) Syncope and collapse ICD Code: R55 Status: Acute Assessment and Plan 61-year-old male with: Chest pain: Appreciate cardiology following. This appeared to be chronic stable angina. Appreciate cardiology following. It appears the patient has had extensive cardiac workup by his outpatient manufacturing controller and he was not a candidate for intervention or repeat bypass. - Plan is to continue to optimize the patient medically. - Patient was started on Ranexa and is being titrated. Continue lisinopril, amiodarone, carvedilol, aspirin and Plavix. COPD exacerbation: Previous CT of the chest confirmed significant COPD and emphysema. - Continue breathing treatments every 4 hours and as needed - Switched to oral prednisone. - Continue supplemental oxygen. Patient reports that he was on oxygen in the past but has been using his oxygen because his machine stopped working. Obtain oxygen walk test. Will likely need home oxygen on discharge. - The patient will be advised to follow-up with her mat weaver given his significant COPD. Syncope: Likely related to above. Patient's son mentioned that whenever his father gets chest pain, he would start taking nitroglycerin to the point where he would pass out at times which is similar to his current presentation. - CT head to r/o intracranial abnormality - Neuro checks q4h Paroxysmal atrial fibrillation: Discussed with cardiology. Apparently the patient was on Coumadin prior to coming to the hospital but he ran out. He was restarted on Coumadin. Follow-up INR in the morning. Pharmacy consult for Coumadin management. Acute Renal Insufficiency - Recheck BMP in a.m. and follow trends in renal indices Tobacco Abuse -Patient counseled on tobacco cessation. He was given a nicotine patch. DVT prophylaxis - Lovenox 40 mg sq q24h Maite Neff MD Jun 15, 2016 14:14
[2016-06-15] MEDS ORDERED: OXYGENTANK NAS.CANULA (14:56)
[2016-06-15] MEDS ORDERED: WARFARIN SOD 5 MG TAB PO ONE (16:00)
[2016-06-15] MEDS: ATORVASTATIN 20 MG TAB PO SCH (20:13)
[2016-06-15] MEDS: predniSONE 20 MG TAB PO SCH (20:14)
[2016-06-15] MEDS: ENOXAPARIN SODIUM 40 MG/0.4 ML SYRINGE SQ SCH (20:14)
[2016-06-15] MEDS: BUDESONIDE-FORMOTEROL 160/4.5 MCG INHALER INH SCH (20:56)
[2016-06-15] MEDS ORDERED: RANOLAZINE 500 MG EXTENDED RELEASE TAB PO SCH (21:00)
[2016-06-16] VITALS (16 sets, daily range): BP systolic 94–107; BP diastolic 62–66; PULSE 70–86; RESP 20; TEMP 97.4–98.6; O2SAT 92–95
[2016-06-16] MEDS: RESP: ALBUTEROL 2.5 MG/IPRATROPIUM 0.5 MG NEB (SCH) NEB ×4 (00:43→11:39)
[2016-06-16 06:35] LABS: PROTHROMBIN TIME - PATIENT 10.7 SEC (9.8-11.6)
[2016-06-16 07:08] LABS: BICARBONATE 32.3 MEQ/L (21.0-32.0); POTASSIUM 5.3 MEQ/L (3.5-5.1)
[2016-06-16] MEDS: NICOTINE 14 MG/24 HR PATCH TD SCH (07:54)
[2016-06-16] MEDS: RANOLAZINE 500 MG EXTENDED RELEASE TAB PO SCH (07:55)
[2016-06-16] MEDS: LISINOPRIL 20 MG TAB PO SCH (07:55)
[2016-06-16] MEDS: ASPIRIN 81 MG CHEW TAB CHEW SCH (07:55)
[2016-06-16] MEDS: CARVEDILOL 6.25 MG TAB PO SCH (07:55)
[2016-06-16] MEDS: AMIODARONE 200 MG TAB PO SCH (07:55)
[2016-06-16] MEDS: CLOPIDOGREL 75 MG TAB PO SCH (07:55)
[2016-06-16] MEDS: predniSONE 20 MG TAB PO SCH (07:55)
[2016-06-16] MEDS: ISOSORBIDE MONONITRATE 60 MG TAB PO SCH (07:55)
[2016-06-16] MEDS: SODIUM CHLORIDE 0.9% FLUSH 5 ML FLUSH FLUSH SCH (07:56)
[2016-06-16] MEDS: PARoxetine HCL 20 MG TAB PO SCH (07:56)
[2016-06-16] MEDS: BUDESONIDE-FORMOTEROL 160/4.5 MCG INHALER INH SCH (07:56)
[2016-06-16] MEDS: ACETAMINOPHEN/HYDROcodone 325 MG/5 MG TAB PO PRN ×2 (07:57→14:39)
[2016-06-16] MEDS ORDERED: NEBULIZER1 MI1 (09:44)
--- NOTE | 2016-06-16 10:49 | HHI.FF ---
Face to Face Verification Diagnosis: (1) COPD (chronic obstructive pulmonary disease) (2) Chronic stable angina (3) Diabetes (4) Obesity Home Health Nursing Order: Medical education Signs/symptoms of disease process Diabetic education Oxygen administration education Medication education-adverse effect I have seen patient Popeye Conde on 06/16/16. My clinical findings support the need for the requested home health care services because: Ltd mobility - disease progression Patient has SOB Limited ability to care for self Need for psychosocial assistance I certify that my clinical findings support that this patient is homebound because: Hx COPD- exertion dyspnea/weakness Poor cardiac reserve Maite Neff MD Jun 16, 2016 10:49
--- NOTE | 2016-06-16 10:53 | HHI.DS ---
Discharge Summary Admission Date Jun 13, 2016 at 17:46 Discharge Date: Jun 16, 2016 Admitting Diagnosis chest pain, shortness of breath, COPD exacerbation (1) Unstable angina ICD Code: I20.0 (2) Acute exacerbation of chronic obstructive pulmonary disease (COPD) ICD Code: J44.1 (3) Acute renal insufficiency ICD Code: N28.9 (4) Thrombocytopenia ICD Code: D69.6 (5) Syncope and collapse ICD Code: R55 Procedures None Brief History - From Admission Mr. Conde is a 61 y/o male with past medical history of CVA (in the 80s), [place] , coronary artery disease with coronary artery bypass graft in 2007, hyperlipidemia, atrial fibrillation, hypertension, COPD, arthritis, bipolar disorder, and tobacco abuse who presented to the emergency room on 06/13/2016 to be evaluated for chest pain unrelieved by sublingual nitroglycerin at home. He was placed on BiPAP and given nebulizers in the ER and was noted to be in respiratory acidosis on blood gas. At the time that he is seen by us, he is now on oxygen at 5 L/m via nasal cannula and is saturating around 93%. He reports that he is been having chest pain accompanied by shortness of breath for about a week or so. He states that chest pain and shortness of breath are getting progressively worse or worse with exertion. 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 He states he has not felt well since going back to work. He has been getting concerned about carbon monoxide poisoning as a possibility because of his exposure to exhaust and he wasn't quite sure if his symptoms which also included a headache or related to his heart, his lungs, or carbon monoxide poisoning. He also recently started smoking again after quitting. He states that he has reocclusion of his cardiac stents occurring yearly. He began to feel some chest pain accompanied by shortness of breath and also with some weakness in his bilateral lower extremities accompanied by pain ( which is chronic in nature due to back problems). He also felt like his left side went numb. He told his coworkers that he needed to go home and walked out of the building on his way to his car and passed out. He states he hit his head and right elbow during the fall. He complains of chronic cough at home and oxygen dependence at home. He states his sputum is a little bit thicker recently. He also feels frequently nauseated. Dr. Love in [place] is his outpatient specifications checker. . CBC/BMP: 06/14/16 0551 06/16/16 0525 Significant Findings Laboratory Tests Test 06/13/16 06/13/16 06/13/16 06/13/16 16:10 16:15 17:57 19:10 Blood Gas HCO3 27 mmol/L (22-26) Arterial Blood pH 7.34 7.35 (7.380-7.420) (7.380-7.420) Arterial Blood Partial 51 mmHg (38-42) 49 mmHg (38-42) Pressure CO2 Arterial Blood 5.4 % (0-4) 4.5 % (0-4) Carboxyhemoglobin Platelet Count 125 TH/MM3 (150-450) Mean Platelet Volume 11.3 FL (7.0-11.0) Neutrophils (%) (Auto) 71.9 % (16.0-70.0) Sodium Level 135 MEQ/L (136-145) Carbon Dioxide Level 32.1 MEQ/L (21.0-32.0) Creatinine 1.53 MG/DL (0.60-1.30) Estimat Glomerular Filtration 46 ML/MIN (>89) Rate Calcium Level 8.3 MG/DL (8.5-10.1) Creatine Kinase MB 3.9 NG/ML (0.5-3.6) Troponin I LESS THAN 0.02 NG/ML (0.02-0.05) Urine Bacteria OCC /hpf (NONE) Urine Mucus FEW /lpf (OCC) Test 06/13/16 06/13/16 06/14/16 06/14/16 20:20 23:43 05:51 07:51 Troponin I LESS THAN 0.02 LESS THAN 0.02 NG/ML NG/ML (0.02-0.05) (0.02-0.05) Platelet Count 109 TH/MM3 (150-450) Neutrophils (%) (Auto) 93.6 % (16.0-70.0) Lymphocytes (%) (Auto) 5.3 % (9.0-44.0) Neutrophils # (Auto) 8.3 TH/MM3 (1.8-7.7) Lymphocytes # (Auto) 0.5 TH/MM3 (1.0-4.8) Estimat Glomerular Filtration 56 ML/MIN (>89) Rate Random Glucose 148 MG/DL (74-106) Test 06/15/16 06/16/16 05:10 05:25 Blood Urea Nitrogen 39 MG/DL (7-18) 29 MG/DL (7-18) Creatinine 1.72 MG/DL (0.60-1.30) Estimat Glomerular Filtration 40 ML/MIN (>89) 66 ML/MIN (>89) Rate Random Glucose 125 MG/DL 127 MG/DL (74-106) (74-106) Sodium Level 134 MEQ/L (136-145) Potassium Level 5.3 MEQ/L (3.5-5.1) Carbon Dioxide Level 32.3 MEQ/L (21.0-32.0) Anion Gap 4 MEQ/L (5-15) Imaging Last Impressions Head CT 06/14/16 0000 Signed Impressions: Service Date/Time: Tuesday, June 14, 2016 00:58 - CONCLUSION: No acute disease. Patel Vázquez MD Chest X-Ray 06/13/16 1557 Signed Impressions: Service Date/Time: Monday, June 13, 2016 16:02 - CONCLUSION: 1. Cardiomegaly. No acute pulmonary disease. Salvador Brower MD PE at Discharge GENERAL: Elderly male in no acute distress. CARDIOVASCULAR: Normal rate and regular rhythm without murmurs, gallops, or rubs. RESPIRATORY: Diminished breath sounds at the bases. There are faint expiratory wheezing. Otherwise clear to auscultation bilaterally. GASTROINTESTINAL: Abdomen soft, non-tender, non-distended. Normal active bowel sounds MUSCULOSKELETAL: Extremities without cyanosis, or edema. NEURO: Alert & Oriented x4 to person, place, time, situation. Moves all ext x4 PSYCH: Appropriate mood and affect. Pt update on day of discharge Patient reports that he is less short of breath with activity. He feels comfortable with going home. Extensive discussion with him regarding the need to follow-up with primary care physician, cardiology, and pulmonology. Apparently he has a history of sleep apnea but has not been using CPAP some time now. He was made aware of the detrimental effect of sleep apnea on his heart and he expressed understanding of the need to follow up and resume treatment for sleep apnea. Hospital Course 61-year-old male admitted and treated for the following conditions: Chest pain: Patient was followed by cardiology. Based on cardiology's assessment, This appeared to be chronic stable angina. It appears the patient has had extensive cardiac workup by his outpatient specifications checker and he was not a candidate for intervention or repeat bypass. - The patient was medically optimized with heart medications -He is to continue on Ranexa, lisinopril, amiodarone, carvedilol, aspirin and Plavix. COPD exacerbation: Previous CT of the chest confirmed significant COPD and emphysema. -Patient treated with IV steroids. He was later transitioned to oral prednisone. He is to continue supplemental oxygen 24 7. Patient reports that he has been using his oxygen because his machine stopped working. The patient is also advised to follow-up with his forest fire warden. He reportedly has a history of obstructive sleep apnea but has not been using CPAP machine because it broke. - Patient is discharged on a prednisone taper. He was given a prescription for Symbicort and nebulizer treatment. Syncope: Likely related to above. Patient's son mentioned that whenever his father gets chest pain, he would start taking nitroglycerin to the point where he would pass out at times which was similar to his current presentation. - CT head r/o intracranial abnormality Paroxysmal atrial fibrillation: Discussed with cardiology. Apparently the patient was on Coumadin prior to coming to the hospital but he ran out. He was restarted on Coumadin. Follow-up INR in the morning. Pharmacy consult for Coumadin management. Acute Renal Insufficiency - Improved Tobacco Abuse -Patient counseled on tobacco cessation. He was given a nicotine patch. The patient was extensively counseled on his discharge planning. Especially the need to follow up outpatient and take all of his medications as prescribed. He was strongly counseled to quit smoking tobacco. Pt Condition on Discharge: Stable Discharge Disposition: Disch w/ Home Health Serv Discharge Time: > 30 minutes Discharge Instructions DIET: Follow Instructions for: Heart Healthy Diet, Coumadin (Warfarin) Diet Activities you can perform: Regular-No Restrictions, See Additionl Instruction Other Activity Instructions: As tolerated. Use oxygen 24/7 Follow up Referrals: Cardiology - 1 Week PCP Follow-up - 3-5 Days Pulmonology - 1 Week New Medications: Nebulizer (Nebulizer) 1 Mis Mis 1 EA .ROUTE DIRECTED Breathing Treatment #1 Ref 0 EA Oxygen tank (Oxygen tank) 1 Ea Tank 2 LITER BRENDA.CANULA CONTINUOUS Oxygen Concentrator Portable Gaseous 2 L/min via Nasal Cannula Continuous For 99 months HYPOXEMIA PREVENTION #2 CYLINDER Prednisone (Prednisone) 20 Mg Tab 20 MG PO DIRECTED Take 60 MG daily x 4 days, then 40 MG x 4 days, then 20 MG daily x 4 days. #24 Ref 0 TAB Budesonide-Formoterol Inh (Symbicort Inh) 160-4.5 Mcg/Act Aero 1 PUFF INH Q12HR #1 INHALER Hydrocodone-Acetaminophen (Hydrocodone-Acetaminophen) 5-325 mg Tab 1 TAB PO Q6H PRN pain >5 #20 TAB Ipratropium-Albuterol Neb (Duoneb) 0.5-2.5 Mg/3 Ml Neb 1 AMPULE NEB Q4HR NEB #1 BOX Continued Medications: Albuterol 8.5 GM Inh (Proair Hfa 8.5 GM Inh) 90 Mcg/Act Aer 2 PUFF INH Q4HR 108 mcg/actuation PRN SHORTNESS OF BREATH #1 Ref 0 INHALER ( This prescription has been renewed) Amiodarone (Amiodarone) 200 Mg Tab 200 MG PO DAILY Regulate Heart Beat #30 Ref 0 TAB (This prescription has been renewed) Aspirin (Aspirin Children's) 81 Mg Chew 81 MG CHEW DAILY Ref 0 TAB Atorvastatin (Atorvastatin) 20 Mg Tab 20 MG PO HS Cholesterol Management #30 Ref 0 TAB (This prescription has been renewed) Carvedilol (Carvedilol) 6.25 Mg Tab 6.25 MG PO BID #60 Ref 0 TAB (This prescription has been renewed) Clopidogrel (Plavix) 75 Mg Tab 75 MG PO DAILY Blood Clot Prevention #30 Ref 0 TAB (This prescription has been renewed) Isosorbide Mononitrate ER (Isosorbide Mononitrate ER) 60 Mg Tab 60 MG PO DAILY Prevent Chest Pain #30 Ref 0 TAB (This prescription has been renewed) Lisinopril (Lisinopril) 20 Mg Tab 20 MG PO DAILY #30 Ref 0 TAB (This prescription has been renewed) Nitroglycerin SL (Nitroglycerin SL) 0.3 Mg Subl 0.3 MG SL DIRECTED ONE TABLET UNDER THE TONGUE NEEDED FOR CHEST PAIN, MAY REPEAT EVERY FIVE MINUTES FOR A TOTAL OF 3 DOSES OR CALL 911 IF NO RELIEF PRN CHEST PAIN #100 Ref 0 TAB.SL Oxycodone ER (Oxycontin) 20 Mg Tab 20 MG PO Q12HR Pain Management Ref 0 TAB Paroxetine (Paxil) 10 Mg Tab 10 MG PO DAILY #30 Ref 0 TAB Ranolazine ER 12 HR (Ranexa ER 12 HR) 500 Mg Tab 500 MG PO HS Chest Pain #60 Ref 0 TAB (This prescription has been renewed) Ropinirole (Requip) 1 Mg Tab 1 MG PO HS #30 Ref 0 TAB Warfarin (Warfarin) 2 Mg Tab 2 MG PO DAILY Blood Clot Prevention #30 Ref 0 TAB (This prescription has been renewed) Discontinued Medications: Cyclobenzaprine (Flexeril) 10 Mg Tab 10 MG PO HS PRN MUSCLE SPASM #90 Ref 0 TAB Diphenhydramine-Acetaminophen (Tylenol Pm Extra Strength) 25-500 Mg Tab 2 TAB PO HS Furosemide (Furosemide) 20 Mg Tab 20 MG PO DAILY #30 Ref 0 TAB Losartan (Losartan) 25 Mg Tab 25 MG PO DAILY Blood Pressure Management #30 Ref 0 TAB Potassium Chloride ER (K-Tab) 10 Meq Tab 10 MEQ PO DAILY Electrolyte Replacement #30 Ref 0 TAB Maite Neff MD Jun 16, 2016 10:53
[2016-06-16 11:01] LABS: BICARBONATE 31.4 MEQ/L (21.0-32.0); POTASSIUM 4.8 MEQ/L (3.5-5.1)
[2016-06-16] MEDS ORDERED: ALBUAER3 INH (11:03)
[2016-06-16] MEDS ORDERED: AMIO200T PO (11:03)
[2016-06-16] MEDS ORDERED: CARV6.252 PO (11:03)
[2016-06-16] MEDS ORDERED: PRED20 PO (11:03)
[2016-06-16] MEDS ORDERED: LISI-515 PO (11:03)
[2016-06-16] MEDS ORDERED: PLAV75TA29 PO (11:03)
[2016-06-16] MEDS ORDERED: RANO500 PO (11:03)
[2016-06-16] MEDS ORDERED: ISOS60TA PO (11:03)
[2016-06-16] MEDS ORDERED: SYMB160A INH (11:03)
[2016-06-16] MEDS ORDERED: WARF4TAB51 PO (11:03)
[2016-06-16] MEDS ORDERED: ATOR20TA15 PO (11:03)
[2016-06-16] MEDS ORDERED: IPRASOL NEB (11:03)
--- NOTE | 2016-06-16 11:52 | PD.CARD.PN ---
Subjective Subjective Remarks No chest pain, mild shortness of breath chronic Objective Medications Current Medications Medications (Trade) Dose Ordered Sig/Tremaine Route Start Time Stop Time Status Last Admin (Tylenol) 650 mg Q4H PRN PO 06/13/16 17:45 (Zofran Inj) 4 mg Q6H PRN IVP 06/13/16 17:45 (Dulcolax Supp) 10 mg DAILY PRN MS 06/13/16 17:45 (Senokot) 17.2 mg Q12H PRN PO 06/13/16 17:45 (Lovenox Inj) 40 mg Q24H SQ 06/13/16 20:00 06/15/16 20:14 (Narcan Inj) 0.4 mg UNSCH PRN IV 06/13/16 17:45 (Cordarone) 200 mg DAILY PO 06/14/16 09:00 06/16/16 07:55 (Aspirin Chew) 81 mg DAILY CHEW 06/14/16 09:00 06/16/16 07:55 (Lipitor) 20 mg HS PO 06/13/16 21:00 06/15/16 20:13 (Coreg) 6.25 mg BID PO 06/13/16 21:00 06/16/16 07:55 (Plavix) 75 mg DAILY PO 06/14/16 09:00 06/16/16 07:55 (Imdur) 60 mg DAILY PO 06/14/16 09:00 06/16/16 07:55 (Prinivil) 20 mg DAILY PO 06/14/16 09:00 06/16/16 07:55 (Paxil) 10 mg DAILY PO 06/14/16 09:00 06/16/16 07:56 (Requip) 1 mg HS PO 06/13/16 21:00 06/15/16 20:13 ([place] 5-325 Mg) 1 tab Q6H PRN PO 06/13/16 23:15 06/16/16 07:57 (Restoril) 15 mg HS PRN PO 06/14/16 14:45 (Ativan) 0.5 mg Q8H PRN PO 06/14/16 14:45 (Habitrol 14 Mg Patch.24 Hr) 1 patch DAILY TD 06/14/16 18:15 06/16/16 07:54 (Symbicort 160-4.5 Inh) 1 puff Q12HR INH 06/15/16 21:00 06/16/16 07:56 (Deltasone) 20 mg BID PO 06/15/16 21:00 06/16/16 07:55 Ranolazine 500 mg 500 mg Q12HR PO 06/15/16 21:00 06/16/16 07:55 (Coumadin Consult Pharmacy) 0 ml @ 0 mls/hr UNSCH OTHER 06/15/16 16:00 (Coumadin) 3 mg DAILY@16 PO 06/16/16 16:00 Vital Signs / I&O Vital Signs Date Time Temp Pulse Resp B/P Pulse Ox O2 Delivery O2 Flow Rate FiO2 06/16/16 11:27 97.7 72 20 94/62 95 06/16/16 11:27 76 06/16/16 10:00 73 06/16/16 09:04 79 06/16/16 08:58 97.4 81 20 107/66 94 06/16/16 08:58 71 06/16/16 08:57 18 06/16/16 08:03 92 Nasal Cannula 5.00 06/16/16 06:30 77 06/16/16 05:07 82 06/16/16 04:32 81 06/16/16 04:25 98.6 86 20 106/64 95 06/16/16 02:55 77 06/16/16 02:03 74 06/16/16 01:10 80 06/16/16 00:43 94 Nasal Cannula 4.00 06/16/16 00:27 74 06/15/16 23:28 98.7 79 22 116/65 92 06/15/16 23:00 76 06/15/16 22:02 78 06/15/16 21:30 84 06/15/16 20:12 97.5 85 21 103/55 97 06/15/16 20:00 80 06/15/16 19:00 82 06/15/16 18:01 83 06/15/16 17:06 72 06/15/16 16:21 81 06/15/16 15:48 94 Nasal Cannula 3.00 06/15/16 15:20 97.8 87 18 105/58 94 06/15/16 15:20 67 06/15/16 14:56 77 06/15/16 13:34 86 06/15/16 12:07 86 06/15/16 12:01 81 I/O 06/15/16 06/15/16 06/15/16 06/16/16 06/16/16 06/16/16 07:00 15:00 23:00 07:00 15:00 23:00 Intake Total 240 ml 840 ml 240 ml Output Total 1050 ml 1050 ml Balance 240 ml -210 ml -810 ml Intake Oral 240 ml 840 ml 240 ml Output Urine Total 1050 ml 1050 ml # Voids 2 # Bowel Movements 1 1 Physical Exam GENERAL: NAD, AAOx3 SKIN: Warm and dry. HEAD: Atraumatic. Normocephalic. EYES: Pupils equal and round. No scleral icterus. No injection or drainage. ENT: No nasal bleeding or discharge. Mucous membranes pink and moist. NECK: Trachea midline. No JVD. CARDIOVASCULAR: Regular rate and rhythm. RESPIRATORY: No accessory muscle use. Decreased breath sounds bilaterally GASTROINTESTINAL: Abdomen soft, non-tender, nondistended. Hepatic and splenic margins not palpable. MUSCULOSKELETAL: Extremities without clubbing, cyanosis, or edema. No obvious deformities. NEUROLOGICAL: Awake and alert. No obvious cranial nerve deficits. Motor grossly within normal limits. Five out of 5 muscle strength in the arms and legs. Normal speech. PSYCHIATRIC: Appropriate mood and affect; insight and judgment normal. Laboratory Laboratory Tests Test 06/16/16 06/16/16 05:25 09:54 Prothrombin Time 10.7 SEC Prothromb Time International 1.0 RATIO Ratio Sodium Level 134 MEQ/L 134 MEQ/L Potassium Level 5.3 MEQ/L 4.8 MEQ/L Chloride Level 98 MEQ/L 99 MEQ/L Carbon Dioxide Level 32.3 MEQ/L 31.4 MEQ/L Anion Gap 4 MEQ/L 4 MEQ/L Blood Urea Nitrogen 29 MG/DL 29 MG/DL Creatinine 1.13 MG/DL 1.12 MG/DL Estimat Glomerular Filtration 66 ML/MIN 66 ML/MIN Rate Random Glucose 127 MG/DL 148 MG/DL Calcium Level 8.7 MG/DL 8.7 MG/DL Assessment and Plan Problem List: (1) Acute exacerbation of chronic obstructive pulmonary disease (COPD) (2) Syncope and collapse (3) Chronic stable angina (4) Acute respiratory acidosis (5) Obesity (6) Diabetes (7) COPD (chronic obstructive pulmonary disease) Assessment and Plan 1) Chest pain appears to be chronic angina in nature. 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 Think he will at least try it once, maybe with pain meds for his back. 4) Attempt to increase anginal medications to help with chronic angina in the outpatient setting 5) Needs to quit smoking, as his difficulty breathing puts further stress on the heart 6) Spoke to patient who understands the plan, also spoke to Roverto, the patient's son about my concerns and the plan 7) Roverto also mentioned that his father gets short of breath, starts popping multiple nitros, has done this in the past and passed out just like his episode before presentation 8) Previously on Coumadin, but ran out... INR 1.0 on arrival, just got Coumadin script the day before coming back in, will start back on Coumadin for Afib Les Lane DO Jun 16, 2016 11:52
[2016-06-16] MEDS ORDERED: WARFARIN SOD 3 MG TAB PO SCH (16:00)
== END 2016-06-16 14:55 | disposition home health service (06) | DRG 191 ==
LOC: NEPE 15:45 → NEDH 17:46 → UNDOADMIN 17:46 → NEDA 17:46 → NEDH 22:05 → HCIS 06-14 09:23
PROVIDERS: ADMIT Family Medicine; ATTEND Family Medicine
PROC: 5A09357 Assistance with Respiratory Ventilation, Less than 24 Consecutive Hours, Continuous Positive Airway Pressure (ICD-10-PCS; principal; 2016-06-13)
DX: J44.1 Chronic obstructive pulmonary disease with (acute) exacerbation (principal); E87.2 Acidosis; D69.6 Thrombocytopenia, unspecified; I25.118 Atherosclerotic heart disease of native coronary artery with other forms of angina pectoris; I25.82 Chronic total occlusion of coronary artery; I50.9 Heart failure, unspecified; I10 Essential (primary) hypertension; I48.0 Paroxysmal atrial fibrillation; R55 Syncope and collapse; I25.2 Old myocardial infarction; Z95.1 Presence of aortocoronary bypass graft; Z91.14 Patient's other noncompliance with medication regimen; M19.90 Unspecified osteoarthritis, unspecified site; E78.00 Pure hypercholesterolemia, unspecified; Z86.73 Personal history of transient ischemic attack (TIA), and cerebral infarction without residual deficits; F31.9 Bipolar disorder, unspecified; F17.210 Nicotine dependence, cigarettes, uncomplicated; E66.01 Morbid (severe) obesity due to excess calories; E78.5 Hyperlipidemia, unspecified; I73.9 Peripheral vascular disease, unspecified; Z87.442 Personal history of urinary calculi; G47.33 Obstructive sleep apnea (adult) (pediatric); I25.5 Ischemic cardiomyopathy; Z80.1 Family history of malignant neoplasm of trachea, bronchus and lung; Z82.49 Family history of ischemic heart disease and other diseases of the circulatory system; N28.9 Disorder of kidney and ureter, unspecified; Z99.81 Dependence on supplemental oxygen; Z95.5 Presence of coronary angioplasty implant and graft; E11.9 Type 2 diabetes mellitus without complications; G89.29 Other chronic pain; M54.9 Dorsalgia, unspecified
CPT/HCPCS: 36600; 70450; 71010; 80048; 81001; 82550; 82552; 82805; 83735; 83880; 84484; 85025; 85610; 93005; 93306; 94002; 94620; 94640; 94664; 96361; 96374; J1650; J2920; J2930; J7040; J7512; J7613